=== PATIENT | female | born 1960 | race Caucasian/White ===

== ENCOUNTER 2016-10-21 06:28 | Emergency (ER) | payer OTHER ==
[2016-10-21] MEDS ORDERED: NS 500 ML IV ONE (06:39)
--- NOTE | 2016-10-21 06:44 | CPEKG ---
Heart Rate: 54 RR Interval: 1111 P-R Interval: 180 QRSD Interval: 92 QT Interval: 436 QTC Interval: 414 P Fountain: 71 QRS Fountain: -5 T Wave Fountain: 42 EKG Severity - NORMAL ECG - EKG Impression: SINUS RHYTHM Electronically Signed By: El Dias 22-Oct-2016 23:03:39
[2016-10-21 07:09] LABS: % IMMATURE GRANULYOCYTES 0.2 % (0.0-1.1); ABSOLUTE IMMATURE GRANULOCYTES 0.01 10^3/uL (0.00-0.10); ADD DIFF? NO; ADD MORPH? NO; ADD SCAN? NO; ATYPICAL LYMPHOCYTE FLAG 30 (0-99); FRAGMENT RBC FLAG 0 (0-99); HEMATOCRIT 44.9 % (38.0-47.0); HEMOGLOBIN 15.6 g/dL (12.6-16.3); LEFT SHIFT FLG 0 (0-99); LIPEMIA HEMOLYSIS FLAG 90 (0-99); MEAN CELL HEMOGLOBIN 32.3 pg (27.9-34.1); MEAN CELL HEMOGLOBIN CONCENTR. 34.7 g/dL (32.4-36.7); MEAN PLATELET VOLUME 10.1 fL (8.7-11.7); PLATELET CLUMPS FLAG 10 (0-99); PLATELET COUNT 204 10^3/uL (150-400); RED BLOOD CELL COUNT 4.83 10^6/uL (4.18-5.33); RED CELL DISTRIBUTION WIDTH 13.2 % (11.5-15.2)
[2016-10-21 07:13] LABS: ANION GAP 12 mEq/L (8-16); CALCIUM 9.2 mg/dL (8.5-10.4); CARBON DIOXIDE 26 mEq/l (22-31); CHLORIDE 106 mEq/L (97-110); CREATININE 0.7 mg/dL (0.6-1.0); GLOMERULAR FILTRATION RATE > 60; GLUCOSE 91 mg/dL (70-100); POTASSIUM 3.9 mEq/L (3.5-5.2); SODIUM 144 mEq/L (134-144)
--- NOTE | 2016-10-21 07:16 | EDPHY ---
H & P Stated Complaint: SOB since Sun, worse now; substernal CP w/ cough x2hr; weakness Time Seen by Provider: 10/21/16 06:53 - Personal History Current Tetanus/Diphtheria Vaccine: Yes Current Tetanus Diphtheria and Acellular Pertussis (TDAP): Yes Tetanus Vaccine Date: 2006 - Medical/Surgical History Hx Asthma: No Hx Chronic Respiratory Disease: No Hx Diabetes: No Hx Cardiac Disease: Yes Hx Renal Disease: No Hx Cirrhosis: No Hx Alcoholism: No Hx HIV/AIDS: No Hx Splenectomy or Spleen Trauma: No Other PMH: PMH- PULMONARY EMBOLISM, DVT, ORTHO, FIBROMYALGIA, HYPERLIPIDEMIA, DEPRESSION, L ILIAC OCCLUDED, HYSTERECTOMY, CARDIAC ANGIOGRAM, sarcoidosis. PSH - - Social History Smoking Status: Never smoked Constitutional: Initial Vital Signs Temperature (C) 36.4 C 10/21/16 06:30 Heart Rate 65 10/21/16 06:30 Respiratory Rate 16 10/21/16 06:30 Blood Pressure 120/74 10/21/16 06:30 O2 Sat (%) 95 10/21/16 06:30 O2 Delivery Mode Room Air O2 (L/minute) 4 Allergies/Adverse Reactions: ibuprofen Allergy (Severe, Verified 07/15/14 14:46) prochlorperazine edisylate [From Compazine] Allergy (Verified 07/15/14 14:46) SWELLING prochlorperazine maleate [From Compazine] Allergy (Verified 07/15/14 14:46) THROAT SWELLING Home Medications: Medication Instructions Recorded B-Complex 100 Tablet 01/26/15 Crestor 20mg (RX) 01/26/15 Hydrocodon-Acetaminophen 5-325 01/26/15 Ketamine 01/26/15 LORAZEPAM 01/26/15 Lidoderm 5% Patch (RX) 01/26/15 Oxycontin 01/26/15 Sertraline HCl 01/26/15 Synthroid 100 mcg (RX) 01/26/15 Vitamin D3 (OTC) 01/26/15 Vivelle-Dot 0.05MG (RX) 01/26/15 Vyvanse 01/26/15 Warfarin Pharmacy To Dose 01/26/15 Zohydro ER 01/26/15 ZyPREXA 2.5 mg (RX) 01/26/15 Ondansetron Odt [Zofran Odt] 4 mg PO Q6-8PRN PRN #8 tab 07/06/15 oxyCODONE/APAP 5/325 [Percocet 1 - 2 tab PO Q6H PRN #12 tab 07/06/15 5/325] Ketorolac Tromethamine [Toradol] 10 mg PO Q8H #7 tab 10/21/16 Medical Decision Making ED Course/Re-evaluation: CHIEF COMPLAINT: Low back pain, dyspnea HISTORY OF PRESENT ILLNESS: The patient is an anticoagulated 55 y/o female, with a history of colon cancer and PEs, arriving with her complaining of intermittent worsening low back pain for the last couple weeks. She had a colonoscopy on that was normal and no biopsies were performed. She was off her Coumadin for a week preceding the procedure and restarted it night for her May-Thurner syndrome. She describes her pain as "throbbing" and "burning" and extending from her lower abdomen directly to her lower back and wrapping around to both flanks. She complains of associated intermittent bilateral leg weakness and dizziness at exertion over the last two days. The pain has caused difficulty sleeping and around 05:00 this morning she woke with shortness of breath and a dry cough. She denies hemoptysis. She notes her lower legs have felt restless but denies new leg swelling or pain. She denies recent illness or trauma. REVIEW OF SYSTEMS: A 10 point review of systems was performed and is negative with the exception of the elements mentioned in the history of present illness. PHYSICAL EXAM: General Appearance: Alert, well hydrated, appropriate, and non-toxic appearing. Head: Atraumatic without scalp tenderness or obvious injury Eyes: Pupils equal, round, reactive to light and accommodation, EOMI, no trauma , no injection. Ears: Clear bilaterally, no perforation, normal landmarks Nose: Atraumatic, no rhinorrhea, clear. Throat: There is no erythema or exudates, no lesions, normal tonsils, mucus membranes moist. Neck: Supple, 2+ carotid upstroke, non-tender, no lymphadenopathy. Respiratory: No retractions, no distress, no wheezes, and no accessory muscle use. Lungs are clear to auscultation bilaterally. Cardiovascular: Regular rate and rhythm, no murmurs, rubs, or gallops. Bilateral carotid, radial, dorsalis pedis, and posterior tibial pulses intact. Good capillary refill all extremities. Gastrointestinal: Abdomen is soft, non-tender, non-distended, no masses, no rebound, no guarding, no peritoneal signs. Musculoskeletal: Normal active ROM of all extremities, atraumatic. Neurological: Alert, appropriate, and interactive. The patient has normal DTRs and non-focal cranial nerves, motor, sensory, and cerebellar exam. Skin: No rashes, good turgor, no nodules on palpation. PAST MEDICAL HISTORY: May-Thurner Syndrome, previous PEs currently on Coumadin, colon cancer, sarcoidosis with hilar lymphadenopathy, chronic low back pain with chronic narcotic use, fibromyalgia, hyperlipidemia, CAD on heart scan, endometriosis PAST SURGICAL HISTORY: Herniated disc surgery, hysterectomy, oophorectomy, iliac vein stents Prior medical records reviewed including admission 07/15/14 for chest pain. SOCIAL HISTORY: at bedside. DIAGNOSTICS/PROCEDURES/CRITICAL CARE TIME: The 12 lead EKG was interpreted by myself. Sinus rhythm rate 54. See hard copy and/or "tracemaster" electronic copy for interpretation. Study: CTA of the Chest Indication: Dyspnea, pain, history of PEs Results: CT scan of the chest was obtained. The results of the study are negative, no change from 2014. The study was read by the radiologist, Dr. Suarez. I viewed the images myself on the PACS system. Study: CT of the Abdomen and Pelvis with IV contrast Indication: Pain, hx colon cancer Results: CT scan of the abdomen was obtained. The results of the study are negative, no change from 2014. The study was read by the radiologist, Dr. Suarez. I viewed the images myself on the PACS system. DIFFERENTIAL DIAGNOSIS: The differential diagnosis for the patient's shortness of breath included but was not limited to pneumonia, myocardial infarction, acute mountain sickness, high altitude pulmonary edema, congestive heart failure , and pulmonary embolus. MEDICAL DECISION MAKING: This is a 55 y/o female with complicated medical history including chronic pain and PEs complaining of a 2-3 week history of worsening lumbar pain with associated lower abdominal pain. She complains of associated dizziness and weakness at exertion over the last 2 days. On exam, she is not tachycardic or hypoxemic and her pain is not reproducible with palpation. Her symptoms could be related to a PE, possibly cardiac etiology, or recurrence of her colon cancer. Plan for ISTAT then CTA of her chest and CT of abdominal/pelvis to rule out acute process. 0810: Reevaluated patient and discussed work up thus far. Labs are unremarkable as is her EKG. Imaging reports are pending. 0842: Reevaluated patient and discussed imaging results. is interested in trying Toradol for her pain, as this has helped in the past. - Data Points Laboratory Results: Laboratory Results 10/21/16 06:49 10/21/16 06:49 10/21/16 10/21/16 10/21/16 07:04 06:49 06:49 WBC RBC Hgb POC Hgb 14.6 gm/dL gm/dL (12.3-15.9) Hct POC Hct 43 % % (35.5-47.5) MCV MCH MCHC RDW Plt Count MPV Neut % (Auto) Lymph % (Auto) Barry % (Auto) Eos % (Auto) Baso % (Auto) Nucleat RBC Rel Count Absolute Neuts (auto) Absolute Lymphs (auto) Absolute Monos (auto) Absolute Eos (auto) Absolute Basos (auto) Absolute Nucleated RBC Immature Gran % Immature Gran # PT 14.0 SEC SEC (12.0-15.0) INR 1.09 (0.83-1.16) APTT 27.5 SEC SEC (23.0-38.0) POC Sodium 142 mEq/L mEq/L (134-144) Sodium 144 mEq/L mEq/L (134-144) POC Potassium 3.9 mEq/L mEq/L (3.3-5.0) Potassium 3.9 mEq/L mEq/L (3.5-5.2) POC Chloride 106 mEq/L mEq/L (96-108) Chloride 106 mEq/L mEq/L (97-110) Carbon Dioxide 26 mEq/l mEq/l (22-31) Anion Gap 12 mEq/L mEq/L (8-16) POC BUN 17 mg/dL mg/dL (7-23) BUN 17 mg/dL mg/dL (7-23) Creatinine 0.7 mg/dL mg/dL (0.6-1.0) POC Creatinine 0.6 mg/dL mg/dL (0.6-1.2) Estimated GFR > 60 Glucose 91 mg/dL mg/dL (70-100) POC Glucose 91 mg/dL mg/dL (70-100) Calcium 9.2 mg/dL mg/dL (8.5-10.4) Creatine Kinase 103 IU/L IU/L (0-156) CK-MB (CK-2) Fraction 0.80 ng/mL ng/mL (0-3.19) Troponin I < 0.012 ng/mL ng/mL (0-0.034) NT-Pro-B Natriuret Pep 64 pg/mL pg/mL (0-125) 10/21/16 06:49 WBC 4.44 10^3/uL 10^3/uL (3.80-9.50) RBC 4.83 10^6/uL 10^6/uL (4.18-5.33) Hgb 15.6 g/dL g/dL (12.6-16.3) POC Hgb Hct 44.9 % % (38.0-47.0) POC Hct MCV 93.0 fL fL (81.5-99.8) MCH 32.3 pg pg (27.9-34.1) MCHC 34.7 g/dL g/dL (32.4-36.7) RDW 13.2 % % (11.5-15.2) Plt Count 204 10^3/uL 10^3/uL (150-400) MPV 10.1 fL fL (8.7-11.7) Neut % (Auto) 41.0 % % (39.3-74.2) Lymph % (Auto) 46.2 % H % (15.0-45.0) Barry % (Auto) 7.2 % % (4.5-13.0) Eos % (Auto) 4.3 % % (0.6-7.6) Baso % (Auto) 1.1 % % (0.3-1.7) Nucleat RBC Rel Count 0.0 % % (0.0-0.2) Absolute Neuts (auto) 1.82 10^3/uL 10^3/uL (1.70-6.50) Absolute Lymphs (auto) 2.05 10^3/uL 10^3/uL (1.00-3.00) Absolute Monos (auto) 0.32 10^3/uL 10^3/uL (0.30-0.80) Absolute Eos (auto) 0.19 10^3/uL 10^3/uL (0.03-0.40) Absolute Basos (auto) 0.05 10^3/uL 10^3/uL (0.02-0.10) Absolute Nucleated RBC 0.00 10^3/uL 10^3/uL (0-0.01) Immature Gran % 0.2 % % (0.0-1.1) Immature Gran # 0.01 10^3/uL 10^3/uL (0.00-0.10) PT INR APTT POC Sodium Sodium POC Potassium Potassium POC Chloride Chloride Carbon Dioxide Anion Gap POC BUN BUN Creatinine POC Creatinine Estimated GFR Glucose POC Glucose Calcium Creatine Kinase CK-MB (CK-2) Fraction Troponin I NT-Pro-B Natriuret Pep Medications Given: Discontinued Medications Sodium Chloride (Ns) 500 mls @ 0 mls/hr IV ONCE ONE PRN Reason: As Directed Stop: 10/21/16 06:40 Last Admin: 10/21/16 07:10 Dose: 500 mls Point of Care Test Results: 10/21/16 07:04 POC Sodium 142 POC Potassium 3.9 POC Chloride 106 POC BUN 17 POC Creatinine 0.6 POC Glucose 91 Departure - Departure Disposition: Home, Routine, Self-Care Clinical Impression: Low back pain Qualifiers: Chronicity: acute Back pain laterality: bilateral Sciatica presence: without sciatica Qualified Code(s): M54.5 - Low back pain Condition: Good Instructions: Acute Low Back Pain (ED) Additional Instructions: 1. Take 10mg Toradol as needed for pain every 8 hours. 2. Follow up with your primary care provider for symptoms not improved over the weekend. 3. Return to the ED for chest pain, shortness of breath, or other worsening of condition. Referrals: Krysta Barrett MD [Primary Care Provider] - As per Instructions Prescriptions: Ketorolac Tromethamine [Toradol] 10 mg PO Q8H #7 tab Report Scribed for: Efrain Pinto Report Scribed by: Lila Hernandez Date of Report: 10/21/16 Time of Report: 08:56
[2016-10-21 07:19] LABS: INR 1.09 (0.83-1.16)
[2016-10-21 07:20] LABS: APTT 27.5 SEC (23.0-38.0)
[2016-10-21 07:26] LABS: TROPONIN I < 0.012 ng/mL (0-0.034)
[2016-10-21] MEDS ORDERED: IOPAMIDOL (ISOVUE-300) 100 ML BTL IV ONE (07:26)
[2016-10-21] MEDS ORDERED: HYDROmorphONE/DILAUDID 1 MG/ML SYR ONE (07:52)
[2016-10-21] MEDS ORDERED: ONDANSETRON 4 MG/2 ML VIAL ONE (07:53)
[2016-10-21] MEDS ORDERED: HYDROmorphONE/DILAUDID 1 MG/ML SYR IVP ONE (07:55)
[2016-10-21] MEDS ORDERED: ONDANSETRON 4 MG/2 ML VIAL IVP ONE (07:55)
[2016-10-21] MEDS ORDERED: KETOROLAC 30 MG/1 ML SDV IVP ONE (08:56)
[2016-10-21 09:26] VITALS: BP 117/75; PULSE 69; RESP 18; TEMP 97.7; O2SAT 96
== END 2016-10-21 09:25 | disposition home or self-care (01) ==
DX: M54.5 Low back pain (principal); I25.10 Atherosclerotic heart disease of native coronary artery without angina pectoris; Z79.01 Long term (current) use of anticoagulants; Z85.038 Personal history of other malignant neoplasm of large intestine
CPT/HCPCS: 71010; 71275; 74177; 93005; 99285; J1170; J1885; J2405; Q9967; 82947-QW

== ENCOUNTER → 2017-01-16 | Outpatient (CLI) | payer OTHER | LOC: FIMAGING 11:19 | PROVIDERS: ATTEND Internal Medicine | DX: Z12.31 Encounter for screening mammogram for malignant neoplasm of breast (principal) | CPT/HCPCS: G0202 ==

== ENCOUNTER → 2017-03-15 | Outpatient (CLI) | payer OTHER | LOC: FIMAGING 16:57 | PROVIDERS: ATTEND Internal Medicine | DX: I87.1 Compression of vein (principal); R10.2 Pelvic and perineal pain; I87.8 Other specified disorders of veins; Z86.718 Personal history of other venous thrombosis and embolism; Z95.828 Presence of other vascular implants and grafts | CPT/HCPCS: 36415-PO; G0463-PO ==

== ENCOUNTER → 2017-03-21 | Outpatient (CLI) | payer OTHER | LOC: FIMAGING 15:50 | PROVIDERS: ATTEND Internal Medicine | DX: R10.2 Pelvic and perineal pain (principal); Z86.718 Personal history of other venous thrombosis and embolism ==

== ENCOUNTER → 2017-07-21 | Outpatient (CLI) | payer OTHER | LOC: FIMAGING 10:59 | PROVIDERS: ATTEND Orthopaedic Surgery Foot and Ankle Surgery | DX: M79.672 Pain in left foot (principal) ==